=== PATIENT | female | born 1940 | race African-American/Black ===

== ENCOUNTER 2019-03-07 18:58 | Emergency (ER) | payer MEDICARE, BC ==
[~2019-03-07] VITALS: Ht 149.9 cm; Wt 63.5 kg
--- NOTE | 2019-03-07 19:36 | PHYS DOC ---
Adult General Chief Complaint Chief Complaint: LOWER EXTREMITY SWELLING HPI HPI 79-year-old female presents to the emergency Department complaints of right lower summary swelling. Patient has a history of hypertension. She states she was seen her primary care physician's office on provided with order for ultrasound as an outpatient and given Keflex for underlying cellulitis. She presents today with increasing pain and swelling. She denies any fever, nausea, shortness breath, chest pain. Is worse with ambulation. Nothing makes her pain better. She denies any recent travel, denies any recent injury. Review of Systems Review of Systems Constitutional: Denies fever or chills [] Respiratory: Denies cough or shortness of breath [] Cardiovascular: No additional information not addressed in HPI [] GI: Denies abdominal pain, nausea, vomiting, bloody stools or diarrhea [] Musculoskeletal: Low she may swelling, pain Integument: Formation right lower extremity, chronic venous stasis changes Neurologic: Denies headache, focal weakness or sensory changes [] All other systems were reviewed and found to be within normal limits, except as documented in this note. Allergies Allergies Allergies Coded Allergies Type Severity Reaction Last Updated Verified No Known Drug Allergies 03/07/19 No Physical Exam Physical Exam Constitutional: Well developed, well nourished, no acute distress, non-toxic appearance. [] Cardiovascular:Heart rate regular rhythm, no murmur [] Lungs & Thorax: Bilateral breath sounds clear to auscultation [] Abdomen: Bowel sounds normal, soft, no tenderness, no masses, no pulsatile masses. [] Skin: Right lower extremity, erythema, edema, chronic venous stasis changes Extremities: See above, description of skin[] Neurologic: Alert and oriented X 3, normal no focal deficits noted. [] Psychologic: Affect normal, judgement normal, mood normal. [] Current Patient Data Vital Signs Vital Signs Date Time Temp Pulse Resp B/P (MAP) Pulse Ox O2 Delivery O2 Flow Rate FiO2 03/07/19 20:30 58 16 129/58 (81) 94 Room Air 03/07/19 19:39 98.6 98.6 Lab Values Laboratory Tests Test 03/07/19 20:02 03/07/19 20:20 White Blood Count 5.7 x10^3/uL (4.0-11.0) Red Blood Count 3.26 x10^6/uL (3.50-5.40) L Hemoglobin 9.0 g/dL (12.0-15.5) L Hematocrit 27.3 % (36.0-47.0) L Mean Corpuscular Volume 84 fL (79-100) Mean Corpuscular Hemoglobin 28 pg (25-35) Mean Corpuscular Hemoglobin Concent 33 g/dL (31-37) Red Cell Distribution Width 19.1 % (11.5-14.5) H Platelet Count 570 x10^3/uL (140-400) H Neutrophils (%) (Auto) 64 % (31-73) Lymphocytes (%) (Auto) 16 % (24-48) L Monocytes (%) (Auto) 10 % (0-9) H Eosinophils (%) (Auto) 10 % (0-3) H Basophils (%) (Auto) 0 % (0-3) Neutrophils # (Auto) 3.6 x10^3/uL (1.8-7.7) Lymphocytes # (Auto) 0.9 x10^3/uL (1.0-4.8) L Monocytes # (Auto) 0.6 x10^3/uL (0.0-1.1) Eosinophils # (Auto) 0.6 x10^3/uL (0.0-0.7) Basophils # (Auto) 0.0 x10^3/uL (0.0-0.2) Sodium Level 141 mmol/L (136-145) Potassium Level 3.5 mmol/L (3.5-5.1) Chloride Level 102 mmol/L (98-107) Carbon Dioxide Level 29 mmol/L (21-32) Anion Gap 10 (6-14) Blood Urea Nitrogen 16 mg/dL (7-20) Creatinine 1.0 mg/dL (0.6-1.0) Estimated GFR (Cockcroft-Gault) 64.7 BUN/Creatinine Ratio 16 (6-20) Glucose Level 95 mg/dL (70-99) Calcium Level 9.2 mg/dL (8.5-10.1) Total Bilirubin 0.2 mg/dL (0.2-1.0) Aspartate Amino Transferase (AST) 19 U/L (15-37) Alanine Aminotransferase (ALT) 16 U/L (14-59) Alkaline Phosphatase 56 U/L (46-116) Total Protein 7.5 g/dL (6.4-8.2) Albumin 3.2 g/dL (3.4-5.0) L Albumin/Globulin Ratio 0.7 (1.0-1.7) L D-Dimer (Christel) 2.18 ug/mlFEU (0.00-0.50) H Laboratory Tests 03/07/19 20:02 Laboratory Tests 03/07/19 20:02 EKG EKG [] Radiology/Procedures Radiology/Procedures [facility] [address] [place] [address] IMAGING REPORT Signed PATIENT: GRANT CESPEDES ACCOUNT: [id number] : 1940 LOCATION: ER AGE: 79 SEX: F EXAM STATUS: REG ER ORD. PHYSICIAN: MARTINA CROW MD REASON: edema/swelling PROCEDURE: VENOUS LOWER EXTREMITY RIGHT Right lower extremity venous duplex Doppler ultrasound HISTORY: Right leg swelling and edema. FINDINGS: No DVT evident with compressibility, patent color Doppler blood flow and augmentation of blood flow the right common femoral vein, profunda femoral vein, superficial femoral vein and popliteal vein. No DVT evident with compressibility and patent color Doppler blood flow the posterior tibial peroneal veins in the calf. IMPRESSION: Negative right leg for DVT. Electronically signed by: Flores Lang MD (03/07/2019 9:47 PM) [facility] DICTATED and SIGNED BY: FLORES LANG MD DATE: 03/07/192146 [] Course & Med Decision Making Course & Med Decision Making Pertinent Labs and Imaging studies reviewed. (See chart for details) []79-year-old female presents to the emergency Department complaints of right lower summary swelling. Patient has a history of hypertension. She states she was seen her primary care physician's office on provided with order for ultrasound as an outpatient and given Keflex for underlying cellulitis. She presents today with increasing pain and swelling. She denies any fever, nausea, shortness breath, chest pain. Is worse with ambulation. Nothing makes her pain better. She denies any recent travel, denies any recent injury. Labs unremarkable No Evidence of DVT Recommend dc keflex and begin bactrim ds po BID x 7 days Don Disclaimer Don Disclaimer This electronic medical record was generated, in whole or in part, using a voice recognition dictation system. Departure Departure Impression: Primary Impression: Cellulitis of right lower extremity Disposition: HOME, SELF-CARE Condition: STABLE Referrals: ROBERT ZABALA MD (PCP) Patient Instructions: Cellulitis, [id number] Additional Instructions: Recommend follow up with PCP 3 - 5 days Return to the ER with worsening symptoms, intractable pain, fever, altered mental status Tylenol/Motrin as needed for pain Take antibiotics as prescribed - Bactrim ds po BID x 7 days Discontinue keflex Scripts Sulfamethoxazole/Trimethoprim (BACTRIM DS TABLET) 1 Each Tablet 1 TAB PO BID for infection, #14 TAB Prov: MARTINA CROW MD 03/07/19 MARTINA CROW MD Mar 07, 2019 19:36
[2019-03-07 20:11] LABS: BASO % 0 % (0-3); EOS # 0.6 x10^3/uL (0.0-0.7); EOS % 10 % (0-3); HEMATOCRIT 27.3 % (36.0-47.0); LYMPH # 0.9 x10^3/uL (1.0-4.8); LYMPH % 16 % (24-48); MEAN CORPUSCULAR HEMOGLOBIN 28 pg (25-35); MEAN CORPUSCULAR HGB CONC 33 g/dL (31-37); MEAN CORPUSCULAR VOLUME 84 fL (79-100); MONO # 0.6 x10^3/uL (0.0-1.1); MONO % 10 % (0-9); NEUT # 3.6 x10^3/uL (1.8-7.7); NEUT % 64 % (31-73); PLATELET COUNT 570 x10^3/uL (140-400); RED BLOOD COUNT 3.26 x10^6/uL (3.50-5.40); RED CELL DISTRIBUTION WIDTH 19.1 % (11.5-14.5); WHITE BLOOD COUNT 5.7 x10^3/uL (4.0-11.0)
[2019-03-07 20:21] LABS: CALCIUM 9.2 mg/dL (8.5-10.1); GFR 64.7; POTASSIUM 3.5 mmol/L (3.5-5.1)
[2019-03-07 20:27] LABS: ALBUMIN 3.2 g/dL (3.4-5.0); ALBUMIN/GLOBULIN RATIO 0.7 (1.0-1.7); TOTAL BILIRUBIN 0.2 mg/dL (0.2-1.0); TOTAL PROTEIN 7.5 g/dL (6.4-8.2)
--- NOTE | 2019-03-07 21:50 | RAD ---
Right lower extremity venous duplex Doppler ultrasound HISTORY: Right leg swelling and edema. FINDINGS: No DVT evident with compressibility, patent color Doppler blood flow and augmentation of blood flow the right common femoral vein, profunda femoral vein, superficial femoral vein and popliteal vein. No DVT evident with compressibility and patent color Doppler blood flow the posterior tibial peroneal veins in the calf. IMPRESSION: Negative right leg for DVT. Electronically signed by: Alberto Lang MD (03/07/2019 9:47 PM) [facility]
[2019-03-07] MEDS ORDERED: SULF1TAB24 PO (21:57)
[2019-03-07 22:00] VITALS: BP 128/59
[2019-03-07] MEDS ORDERED: SMZ/TMP 800/160MG TABLET. PO ONE (22:15)
== END 2019-03-07 22:16 | disposition home or self-care (01) ==
LOC: ER 18:58
DX: L03.115 Cellulitis of right lower limb (principal)
CPT/HCPCS: 36415; 80053; 85025; 85379; 93971; 99285-25

== ENCOUNTER → 2019-07-16 | Outpatient (CLI) | payer MEDICARE, BC ==
[~2019-07-16] MED LIST: CONTRAST GIVEN. MC PRN; IOHEXOL 240 MG/ML 50ML VIAL. PO ONE; IOHEXOL 300 MG/ML 100ML VIAL. IV ONE; SULF1TAB24 PO
--- NOTE | 2019-07-16 16:11 | RAD ---
CT scan of the abdomen and pelvis with contrast 07/16/2019 CLINICAL HISTORY: Lower abdominal pain. TECHNIQUE: After the oral and intravenous administration of contrast, contiguous, 5 mm axial sections were obtained through the abdomen and pelvis. 75 cc of Omnipaque 300 were administered intravenously during this examination. One or more of the following individualized dose reduction techniques were utilized for this study: 1. Automated exposure control. 2. Adjustment of the mA and/or kV according to patient size. 3. Use of iterative reconstruction technique. FINDINGS: Images through the lung bases demonstrate linear bands of subsegmental atelectasis and or scarring involving the lingula and right middle lobe. Minimal dependent subsegmental atelectasis is seen involving both lower lobes. There is mild cardiomegaly. Rounded low-attenuation lesions are seen involving the liver, superiorly consistent with hepatic cysts. The spleen, pancreas and adrenal glands are within normal limits. Rounded low-attenuation lesions are seen involving both kidneys. These likely represent cysts. They measure 3 mm to 5 mm in size. No further imaging workup is recommended. Atherosclerotic calcification abdominal aorta is seen. The abdominal aorta tapers normally. Surgical clips are seen within the gallbladder fossa consistent with a cholecystectomy. Air and stool are seen throughout the colon. There is no evidence of bowel obstruction. Images through the pelvis demonstrate the urinary bladder distended with urine. Calcifications are seen within the pelvis consistent with phleboliths. Postsurgical changes are seen involving the lower pelvis. A ventral hernia is seen within the lower anterior abdominal wall within the midline pelvis. This is just inferior to a long midline skin incision. The hernia sac projects to the right of midline and contains nondilated contrast filled small bowel. The hernia sac measures 5.6 cm in size. Calcifications are seen throughout the pelvis consistent with phleboliths. No free fluid is seen. Very mild S-shaped curvature of the thoracolumbar spine is noted. Degenerative changes are seen involving the lower thoracic and throughout the lumbar spine along with both hips. IMPRESSION: A ventral hernia is seen involving the lower anterior abdominal wall within the pelvis and contains a nondilated segment of small bowel. No acute abnormality is seen. Electronically signed by: Jeff Ashraf MD (07/16/2019 4:08 PM) [facility] [place]
== END | disposition home or self-care (01) ==
LOC: CT 09:00
PROVIDERS: ATTEND Family Medicine
DX: K43.9 Ventral hernia without obstruction or gangrene (principal); K76.9 Liver disease, unspecified; I51.7 Cardiomegaly; I70.0 Atherosclerosis of aorta
CPT/HCPCS: 74177; Q9966; Q9967

== ENCOUNTER → 2020-12-21 | Outpatient (CLI) | payer MEDICARE, BC ==
[~2020-12-21] MED LIST changes: -CONTRAST GIVEN. MC PRN; -IOHEXOL 240 MG/ML 50ML VIAL. PO ONE; -IOHEXOL 300 MG/ML 100ML VIAL. IV ONE
--- NOTE | 2020-12-21 12:07 | RAD ---
Right lower extremity venous duplex study 12/21/2020 12:03 PM Clinical History: Reason: EDEMA R LOWER LEG / Spl. Instructions: / History: Technique: Using a combination of real time ultrasound imaging and color-flow and pulse Doppler imagi ng techniques, including spectral analysis, graded compression and augmentation, duplex evaluation of the deep venous system of the right lower extremity was performed. Multiple images were obtained. Findings: There is no sonographic evidence of deep venous thrombosis involving the visualized deep ve nous structures of the right lower extremity. 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 Impression: No evidence of deep venous thrombosis involving the right lower extremity Electronically signed by: Bryan Santana MD (12/21/2020 12:04 PM) [id number]
== END ==
LOC: US 11:11
PROVIDERS: ATTEND Family Medicine
DX: R60.0 Localized edema (principal)
CPT/HCPCS: 93971